=== PATIENT | male | born 1970 | race Caucasian/White ===

== ENCOUNTER 2018-11-14 12:03 | Emergency (ER) | payer OTHER ==
[~2018-11-14] VITALS: Ht 177.8 cm; Wt 99.8 kg
[~2018-11-14 12:03] MED LIST: Bactroban22 GM TOP; Nix Lice Treatm59 ML TOP; Triamcinolone A15 GM TOP
== END 2018-11-14 12:06 ==
LOC: ER 12:03
DX: I49.01 Ventricular fibrillation (principal); Z79.899 Other long term (current) drug therapy
CPT/HCPCS: 99285